=== PATIENT | male | born 1995 | race Caucasian/White ===

== ENCOUNTER 2017-02-03 15:20 | Emergency (ER) | payer OTHER ==
[2017-02-03 15:28] VITALS: BP 132/63; PULSE 66; RESP 16; TEMP 98.1; O2SAT 98
--- NOTE | 2017-02-03 16:14 | EDPHY ---
H & P Stated Complaint: ?sebaceous cyst on back removed Tu;here for wound check/ packing removal Time Seen by Provider: 02/03/17 16:03 HPI/ROS: Chief complaint: Wound recheck History of present illness: This is a 22-year-old male who presents to the emergency department for wound recheck. Patient reports patient developed an infected sebaceous cyst on Tuesday, 2 days ago. He was seen at [facility] at the [facility] the area was incised and drained and packing was placed, surrounding infection was demarcated with a sharpie pen. He was placed on clindamycin which he has been taking as prescribed. He presents here as he is working here, for a recheck. He states he is feeling much better. There are no new signs or symptoms including no increasing pain, no fevers, chills or no other signs or symptoms. He is taking antibiotics as prescribed and still has another 6 days worth. - Personal History Current Tetanus Diphtheria and Acellular Pertussis (TDAP): Yes - Medical/Surgical History Other PMH: neg - Social History Smoking Status: Former smoker - Physical Exam Exam: General Appearance: Alert and no distress. Eyes: Pupils equal and round no injection. Respiratory: Chest is non tender, lungs are clear to auscultation. Cardiac: regular rate and rhythm Musculoskeletal: Neck is supple and non tender. Extremities have full range of motion and are non tender. Skin: Patient has an incised wound to the right lower back with packing in place. No significant pustular discharge noted. Minimal surrounding erythema. No edema. No tenderness, warmth, induration or fluctuance on palpation. Remits of the demarcation line is noted and there is significant improvement from where it appears to have initially been. Constitutional: Initial Vital Signs Temperature (C) 36.7 C 02/03/17 15:23 Heart Rate 66 02/03/17 15:23 Respiratory Rate 16 02/03/17 15:23 Blood Pressure 132/63 H 02/03/17 15:23 O2 Sat (%) 98 02/03/17 15:23 O2 Delivery Mode Room Air Allergies/Adverse Reactions: No Known Allergies Allergy (Unverified 02/03/17 15:28) Home Medications: Medication Instructions Recorded Clindamycin HCl [Clindamycin] 300 mg PO 02/03/17 Medical Decision Making ED Course/Re-evaluation: Patient seen under the supervision of my secondary supervising physician Dr. Iggy Monsalve. Patient presents for a wound recheck. He appears to have had an I and D with packing currently in place, packing is removed. Area appears to be healing well without signs of worsening infection. I believe he can be safely discharged home. Home care is discussed. He is asked to continue taking his antibiotics until finished even if feeling better. He is asked to follow up with the clinic where he had initially treated for recheck next week. Strict return precautions are given. Patient voiced understanding and agreement with plan. Differential Diagnosis: Included but not limited to abscess, cellulitis Departure - Departure Disposition: Home, Routine, Self-Care Clinical Impression: Encounter for wound re-check Condition: Good Instructions: Acute Wounds (ED) Additional Instructions: Follow-up with a primary care doctor for continued evaluation and care Take all antibiotics as prescribed until finished even feeling better Symptoms worsen or new symptoms develop return to the emergency room immediately for recheck Referrals: NONE *PRIMARY CARE P,. [Primary Care Provider] - As per Instructions [facility],. [Clinic] - As per Instructions
== END 2017-02-03 16:23 | disposition home or self-care (01) ==
DX: Z48.01 Encounter for change or removal of surgical wound dressing (principal); Z87.891 Personal history of nicotine dependence

== ENCOUNTER 2018-02-11 01:50 | Emergency (ER) | payer OTHER ==
[2018-02-11] MEDS ORDERED: FAMOTIDINE 20 MG/2 ML SDV IVP ONE (02:09)
[2018-02-11] MEDS ORDERED: ONDANSETRON 4 MG/2 ML VIAL IVP ONE (02:09)
[2018-02-11] MEDS ORDERED: NS 1,000 ML IV ONE ×2 (02:09)
--- NOTE | 2018-02-11 02:12 | EDPHY ---
H & P Stated Complaint: lower abd pain after drinking ETOH tonight. "bad reaction" to alcohol. Time Seen by Provider: 02/11/18 02:10 HPI/ROS: HPI CHIEF COMPLAINT: Alcohol intoxication, nausea, vomiting HISTORY OF PRESENT ILLNESS: Patient is a 23-year-old male, is otherwise healthy without any significant medical history he presents emergency room with nausea vomiting after drinking alcohol this evening. Patient reports to me that he had 2 beers this evening multiple shots of whiskey he thinks 3-4 shots of whiskey. Shortly after doing this he developed some abdominal pain mainly in the epigastric region with associated vomiting. No hematemesis. No diarrhea. No lower abdominal pain. He reports to me that every time he drinks liquor he gets abdominal pain and nausea vomiting. His last time he drank liquor was 8 months ago. Patient reports that he was recently at a concert this evening had multiple beers multiple shots of liquor and then developed abdominal pain with vomiting. Past Medical History: Denies medical history Past Surgical History: Denies surgical history Social History: Occasional alcohol use, regular marijuana use. Lives in [place]. Here in [place] for [employer]. Family History: Noncontributory ROS REVIEW OF SYSTEMS: A comprehensive 10 point review of systems is otherwise negative aside from elements mentioned in the history of present illness. Exam Constitutional intoxicated, smells of alcohol, triage nursing summary reviewed , vital signs reviewed, awake/alert. Eyes normal conjunctivae and sclera, EOMI, PERRLA. HENT normal inspection, atraumatic, moist mucus membranes, no epistaxis, neck supple/ no meningismus, no raccoon eyes. Respiratory clear to auscultation bilaterally, normal breath sounds, no respiratory distress, no wheezing. Cardiovascular rate normal, regular rhythm, no murmur, no edema, distal pulses normal. Gastrointestinal mild tender palpation epigastric no rebound, no guarding, normal bowel sounds, no distension, no pulsatile mass. Genitourinary no CVA tenderness. Musculoskeletal no midline vertebral tenderness, full range of motion, no calf swelling, no tenderness of extremities, no meningismus, good pulses, neurovascularly intact. Skin pink, warm, & dry, no rash, skin atraumatic. Neurologic awake, alert and oriented x 3, AAOx3, moves all 4 extremities equally, motor intact, sensory intact, CN II-XII intact, normal cerebellar, normal vision, normal speech. Psychiatric normal mood/affect. Heme/Lymph/Immune no lymphadenopathy. Differential diagnosis includes but is not limited to and in no particular order : Acute alcohol intoxication, alcohol-induced pancreatitis, alcohol abuse gastritis, Bowel obstruction, appendicitis, gallbladder disease, diverticulitis , colitis, enteritis, perforated viscus, gastritis, GERD, esophagitis, urinary tract infection, pyelonephritis, kidney stones Medical Decision Making: Plan for this patient IV establishment IV fluid bolus 2 L normal saline, IV Zofran for nausea, IV Pepcid for GI upset, basic blood work, KUB. Re-evaluate. Re-evaluation: Serum alcohol 105. Lipase noted be slightly elevated. Blood work reviewed. Mildly elevated lipase could be alcohol-induced pancreatitis. 0415: Re-examination patient is resting comfortably feels well. No abdominal pain. No vomiting. He is eager to be discharged. Return precautions discussed understands return emergency room if develops worsening abdominal pain fever vomiting. Refrain from drinking alcohol. Source: Patient - Personal History Current Tetanus/Diphtheria Vaccine: Yes Current Tetanus Diphtheria and Acellular Pertussis (TDAP): Yes - Medical/Surgical History Hx Asthma: No Hx Chronic Respiratory Disease: No Hx Diabetes: No Hx Cardiac Disease: No Hx Renal Disease: No Hx Cirrhosis: No Hx Alcoholism: No Hx HIV/AIDS: No Hx Splenectomy or Spleen Trauma: No Other PMH: denies - Social History Smoking Status: Former smoker Constitutional: Initial Vital Signs Temperature (C) 36.3 C 02/11/18 01:54 Heart Rate 82 02/11/18 01:54 Respiratory Rate 16 02/11/18 01:54 Blood Pressure 101/74 02/11/18 01:54 O2 Sat (%) 98 02/11/18 01:54 O2 Delivery Mode Room Air Allergies/Adverse Reactions: No Known Allergies Allergy (Verified 02/11/18 01:53) Home Medications: Medication Instructions Recorded NK [No Known Home Meds] 02/11/18 Medical Decision Making - Data Points Laboratory Results: Laboratory Results 02/11/18 02:09 02/11/18 02:09 02/11/18 02/11/18 02:09 02:09 WBC 12.60 10^3/uL H 10^3/uL (3.80-9.50) RBC 4.51 10^6/uL 10^6/uL (4.40-6.38) Hgb 13.8 g/dL g/dL (13.7-17.5) Hct 40.8 % % (40.0-51.0) MCV 90.5 fL fL (81.5-99.8) MCH 30.6 pg pg (27.9-34.1) MCHC 33.8 g/dL g/dL (32.4-36.7) RDW 13.2 % % (11.5-15.2) Plt Count 206 10^3/uL 10^3/uL (150-400) MPV 10.5 fL fL (8.7-11.7) Neut % (Auto) 80.8 % H % (39.3-74.2) Lymph % (Auto) 12.1 % L % (15.0-45.0) Barren % (Auto) 5.3 % % (4.5-13.0) Eos % (Auto) 1.0 % % (0.6-7.6) Baso % (Auto) 0.5 % % (0.3-1.7) Nucleat RBC Rel Count 0.0 % % (0.0-0.2) Absolute Neuts (auto) 10.18 10^3/uL H 10^3/uL (1.70-6.50) Absolute Lymphs (auto) 1.52 10^3/uL 10^3/uL (1.00-3.00) Absolute Monos (auto) 0.67 10^3/uL 10^3/uL (0.30-0.80) Absolute Eos (auto) 0.13 10^3/uL 10^3/uL (0.03-0.40) Absolute Basos (auto) 0.06 10^3/uL 10^3/uL (0.02-0.10) Absolute Nucleated RBC 0.00 10^3/uL 10^3/uL (0-0.01) Immature Gran % 0.3 % % (0.0-1.1) Immature Gran # 0.04 10^3/uL 10^3/uL (0.00-0.10) Sodium 146 mEq/L H mEq/L (135-145) Potassium 3.7 mEq/L mEq/L (3.3-5.0) Chloride 107 mEq/L mEq/L (97-110) Carbon Dioxide 19 mEq/l L mEq/l (22-31) Anion Gap 20 mEq/L H mEq/L (8-16) BUN 12 mg/dL mg/dL (7-23) Creatinine 0.8 mg/dL mg/dL (0.7-1.3) Estimated GFR > 60 Glucose 97 mg/dL mg/dL (70-100) Calcium 9.7 mg/dL mg/dL (8.5-10.4) Total Bilirubin 0.5 mg/dL mg/dL (0.1-1.4) Conjugated Bilirubin 0.4 mg/dL mg/dL (0.0-0.5) Unconjugated Bilirubin 0.1 mg/dL mg/dL (0.0-1.1) AST 56 IU/L IU/L (17-59) ALT 38 IU/L IU/L (21-72) Alkaline Phosphatase 48 IU/L IU/L (38-126) Total Protein 7.6 g/dL g/dL (6.3-8.2) Albumin 4.8 g/dL g/dL (3.5-5.0) Lipase 375 IU/L H IU/L (23-300) Ethyl Alcohol 108 mg/dL H mg/dL (0-10) Medications Given: Discontinued Medications Famotidine (Pepcid) 20 mg IVP EDNOW ONE Stop: 02/11/18 02:10 Last Admin: 02/11/18 02:21 Dose: 20 mg Sodium Chloride (Ns) 1,000 mls @ 0 mls/hr IV EDNOW ONE; Wide Open PRN Reason: Protocol Stop: 02/11/18 02:10 Last Admin: 02/11/18 02:12 Dose: 1,000 mls Sodium Chloride (Ns) 1,000 mls @ 0 mls/hr IV EDNOW ONE; Wide Open PRN Reason: Protocol Stop: 02/11/18 02:10 Last Admin: 02/11/18 02:20 Dose: 1,000 mls Ondansetron HCl (Zofran) 4 mg IVP EDNOW ONE Stop: 02/11/18 02:10 Last Admin: 02/11/18 02:21 Dose: 4 mg Departure - Departure Disposition: Home, Routine, Self-Care Clinical Impression: Abdominal pain Qualifiers: Abdominal location: epigastric Qualified Code(s): R10.13 - Epigastric pain Vomiting Qualifiers: Vomiting type: unspecified Vomiting Intractability: non-intractable Nausea presence: with nausea Qualified Code(s): R11.2 - Nausea with vomiting, unspecified Alcohol intoxication Qualifiers: Complication of substance-induced condition: uncomplicated Qualified Code(s): F10.920 - Alcohol use, unspecified with intoxication, uncomplicated Condition: Good Instructions: Alcohol Intoxication (ED), Acute Nausea and Vomiting (ED), Acute Abdominal Pain (ED) Referrals: NONE *PRIMARY CARE P,. [Primary Care Provider] - As per Instructions
[2018-02-11 02:54] LABS: PLATELET COUNT 206 10^3/uL (150-400)
[2018-02-11 04:30] VITALS: BP 120/66
== END 2018-02-11 04:30 | disposition home or self-care (01) ==
DX: R11.2 Nausea with vomiting, unspecified (principal); R10.13 Epigastric pain; F10.920 Alcohol use, unspecified with intoxication, uncomplicated; E86.9 Volume depletion, unspecified; Z87.891 Personal history of nicotine dependence
CPT/HCPCS: 96374; G0480; J2405